=== PATIENT | male | born 1945 | race Caucasian/White ===

== ENCOUNTER 2017-04-26 16:33 | Emergency (ER) | payer MEDICARE ==
[~2017-04-26] VITALS: Ht 180.3 cm; Wt 94.5 kg
[2017-04-26] MEDS ORDERED: LIDOCAINE 1%, 10ML INFIL ONE (17:00)
[2017-04-26] MEDS ORDERED: DIPH,PERTUSS(ACELL),TET VAC/PF 0.5 ML IM-VACC ONE ×2 (17:00→17:07)
[2017-04-26] MEDS ORDERED: LIDOCAINE 1%, 20ML ONE (17:00)
[2017-04-26 19:49] VITALS: BP 129/84
== END 2017-04-26 19:52 | disposition home or self-care (01) ==
LOC: ED 18:27
DX: S01.81XA Laceration without foreign body of other part of head, initial encounter (principal); I10 Essential (primary) hypertension; W19.XXXA Unspecified fall, initial encounter; Y93.89 Activity, other specified; Y92.410 Unspecified street and highway as the place of occurrence of the external cause; Y99.9 Unspecified external cause status
CPT/HCPCS: 12054; 70450; 70486; 72125; 90471; 90715